=== PATIENT | female | born 1975 | race Caucasian/White ===

== ENCOUNTER 2016-09-13 11:50 | Emergency (ER) | payer BC ==
[~2016-09-13] VITALS: Ht 160 cm; Wt 67.2 kg
[~2016-09-13 11:50] MED LIST: CLC100; IBUP600T44; PRENTAB26
[2016-09-13 12:00] VITALS: BP 116/78; PULSE 82; TEMP 36.7; O2SAT 99; Ht 160 cm; Wt 67.2 kg
[2016-09-13] MEDS ORDERED: BACITRACIN OINT 15 GM TUBE ONE (12:20)
[2016-09-13] MEDS ORDERED: BACITRACIN OINT 15 GM TUBE EXT ONE (12:30)
--- NOTE | 2016-09-13 20:41 | EMERGENCY ROOM VISIT NOTE ---
History First contact with patient: 12:05 Chief Complaint: BURN (MINOR) Stated Complaint: UPPER THIGH WELCH History of Present Illness The patient is a 41 year old female who presents to the Emergency Room for evaluation of welch to her upper thighs. The patient was cooking avendano this morning and did not notice that she had splashed grease onto her legs. She did have pajamas on at the time, and took them off immediately after she felt the burning sensation. She also immediately applied cool compresses to the region. She rates her discomfort a 5 out of 10. The patient is uncertain of her last tetanus immunization. Review of Systems 10 system review was performed and was negative except for pertinent positives and negatives as indicated in history of present illness Past Medical/Surgical History Medical Problems: (1) No significant past medical history Surgical Problems: (1) No history of previous surgery Family History Unremarkable Social History Smoking Status: Never Smoker Alcohol Use: none Marital Status: Housing Status: lives with family Occupation Status: employed Current/Historical Medications No Active Prescriptions or Reported Meds Physical Exam Vital Signs Date Time Temp Pulse Resp B/P (MAP) Pulse Ox O2 Delivery O2 Flow Rate FiO2 09/13/16 12:00 36.7 82 20 116/78 99 Room Air Pain Rating (0-10): 2.0 Physical Exam CONSTITUTIONAL: Healthy and well nourished. Alert and oriented X 3 with positive affect. Patient does not appear in any acute distress. HEENT: Normocephalic, atraumatic. Pupils equal, round and reactive. NECK: Full active range of motion without discomfort. MUSCULOSKELETAL: Full range of motion of all joints without discomfort. INTEGUMENTARY: Examination shows a mixture of first and second-degree welch to bilateral anterior thighs with 2.5% body surface area on the left, 1% body surface area on the right. Blisters are intact and flat. NEUROLOGIC: No focal neurologic deficits noted. Medical Decision & Procedures Medications Administered Medications (Trade) Dose Ordered Sig/Jacob Route Start Time Stop Time Status Last Admin Dose Admin Bacitracin (Bacitracin Oint) 1 appln NOW ONCE EXT 09/13/16 12:30 09/13/16 12:31 DC 09/13/16 12:30 1 APPLN ED Course Patient history and physical exam were performed. Nurse's notes were reviewed. Vital signs were reviewed and normal. Bacitracin dressings were applied. The patient was encouraged to keep them covered with an antibiotic ointment and dressing until they heal. Cool compresses as needed for additional relief. Ibuprofen and Tylenol in alternating fashion for pain. The patient refused any prescription analgesics. The patient was offered an Adacel booster, but declined. She was instructed to check with her family doctor to make certain that her tetanus booster is up-to-date within the past 10 years. The patient was happy with plan of care, voiced understanding of all discharge instructions , and rated her pain a 3 out of 10 at the time of discharge. Medical Decision Medication Reconcilliation Current Medication List: was personally reviewed by me Blood Pressure Screening Patient's blood pressure: Normal blood pressure Impression Primary Impression: Second-degree burn of bilateral thighs Departure Information Dispostion Home / Self-Care Prescriptions No Active Prescriptions or Reported Meds Forms HOME CARE DOCUMENTATION FORM, IMPORTANT VISIT INFORMATION Patient Instructions My [facility], ED Burn Thermal D 1st 2nd Dressing Additional Instructions Do not pop blisters. Keep welch covered with bacitracin zinc and dressings until they heal. Intermittently apply cool compresses if needed for additional pain relief. Ibuprofen 800 mg and/or Tylenol 1000 mg every 8 hours. You may also alternate these medications for more effective pain relief: Ibuprofen --4 HRS--> Tylenol --4 HRS--> ibuprofen --4 HRS--> Tylenol .... Return to emergency department for any further concern/wound management, or follow-up with your family doctor as needed. Verify with your family doctor that your tetanus booster is up-to-date within the past 10 years.
== END 2016-09-13 12:56 | disposition home or self-care (01) ==
LOC: C.EDB 11:52 → C.EDD 12:56
DX: T24.212A Burn of second degree of left thigh, initial encounter (principal); T24.211A Burn of second degree of right thigh, initial encounter; X12.XXXA Contact with other hot fluids, initial encounter; Y92.010 Kitchen of single-family (private) house as the place of occurrence of the external cause